=== PATIENT | male | born 1995 | race African-American/Black ===

== ENCOUNTER 2019-04-26 20:51 | Emergency (ER) | payer SELFPAY | END 2019-04-26 21:22 | disposition home or self-care (01) | LOC: MADERS 20:51 | DX: S91.201A Unspecified open wound of right great toe with damage to nail, initial encounter (principal); F31.9 Bipolar disorder, unspecified; F17.220 Nicotine dependence, chewing tobacco, uncomplicated; W20.8XXA Other cause of strike by thrown, projected or falling object, initial encounter | CPT/HCPCS: 99283 ==

== ENCOUNTER 2019-07-05 12:10 | Emergency (ER) | payer SELFPAY ==
[2019-07-05] MEDS ORDERED: Ketorolac Tromethamine 60 MG/2 ML VIAL ONE (12:43)
== END 2019-07-05 13:02 | disposition home or self-care (01) ==
LOC: MADERS 12:10
DX: S39.011A Strain of muscle, fascia and tendon of abdomen, initial encounter (principal); F31.9 Bipolar disorder, unspecified; F17.220 Nicotine dependence, chewing tobacco, uncomplicated; X50.9XXA Other and unspecified overexertion or strenuous movements or postures, initial encounter
CPT/HCPCS: 96372; 99283; J1885

== ENCOUNTER 2020-02-04 10:41 | Emergency (ER) | payer SELFPAY ==
[2020-02-04] MEDS ORDERED: Azithromycin 250 MG TAB ONE (11:01)
[2020-02-04] MEDS ORDERED: Dexamethasone 4 MG TAB ONE (11:30)
[2020-02-04] MEDS ORDERED: Benzonatate 100 MG CAP ONE (11:31)
== END 2020-02-04 11:35 | disposition home or self-care (01) ==
LOC: MADERS 10:41
DX: J18.9 Pneumonia, unspecified organism (principal); J02.9 Acute pharyngitis, unspecified; F31.9 Bipolar disorder, unspecified; Z87.891 Personal history of nicotine dependence
CPT/HCPCS: 99282; J8540

== ENCOUNTER 2020-05-02 07:39 | Emergency (ER) | payer SELFPAY ==
[2020-05-02] MEDS ORDERED: Metoclopramide HCl 10 MG/2 ML VIAL ONE (08:41)
[2020-05-02] MEDS ORDERED: Sodium Chloride 0.9% 1,000 ML ONE ×2 (08:41→10:06)
--- NOTE | 2020-05-02 09:00 | CT ---
Exam: Head CT without contrast HISTORY: Headache COMPARISON: 07/23/2010 FINDINGS: Hemorrhage: No intraparenchymal hemorrhage or extra-axial hematoma. Brain parenchyma: Cortical gibbons-white matter differentiation is preserved. No mass effect or midline shift. Basilar cisterns are patent. Ventricular system: Ventricles and sulci are patent and symmetric. Calvarium: Intact. Sinuses and mastoid air cells: Adequate aeration. IMPRESSION: No acute intracranial process.
[2020-05-02 09:01] LABS: #Neutrophils 2.5 thou/uL (1.40-6.50); %Basophils 1.6 % (0.0-1.0); %Eosinophils 4.3 % (0.0-10.0); %Lymphocytes 31.4 % (21.0-51.0); %Monocytes 9.2 % (0.0-10.0); %Neutrophils 53.6 % (42.0-75.0); Hemoglobin 16.9 g/dL (14.0-18.0); Mean Corpuscular Hemoglobin 28.7 pg (27.0-31.0); Mean Corpuscular Volume 86.8 fL (78.0-98.0); Mean Platelet Volume 7.5 fL (7.4-10.4); Platelet Count 245 thou/uL (130-400); RBC Distribution Width 11.2 % (11.5-14.5); Red Blood Cell (RBC) Count 5.91 mill/uL (4.70-6.10); White Blood Cell (WBC) Count 4.7 thou/uL (4.8-10.8)
[2020-05-02 09:02] LABS: #Basophils 0.1 thou/uL (0.0-0.2); #Eosinphils 0.2 thou/uL (0.0-0.7); #Lymphocytes 1.5 thou/uL (1.20-3.40); #Monocytes 0.4 thou/uL (0.11-0.59)
[2020-05-02 09:25] LABS: BUN (Urea Nitrogen) 12 mg/dL (8.9-20.6); Calc. Creatinine Clearance 0 mL/min (70-130); Calcium 9.1 mg/dL (7.8-10.44); Carbon Dioxide 26 mmol/L (22-29); Chloride 104 mmol/L (98-107); Estimated GFR-MDRD Greater than 90; Glucose 96 mg/dL (70-105); Potassium 3.8 mmol/L (3.5-5.1); Sodium 140 mmol/L (136-145)
[2020-05-02 09:26] LABS: Anion Gap 14 mmol/L (10-20)
[2020-05-02] MEDS ORDERED: Lidocaine 1% 20 ML MDV ONE (09:27)
[2020-05-02 12:00] LABS: CSF Source CSF; Clarity Clear (Clear); Tube # 4
[2020-05-02 12:02] LABS: CSF RBC Count - Manual 2 /cu.mm (None Seen); CSF WBC/NonHematics Count-Man 3 /cu.mm (0-5)
[2020-05-02 12:15] LABS: CSF RBC Count - Manual 33 /cu.mm (None Seen); CSF Source CSF; CSF WBC/NonHematics Count-Man 1 /cu.mm (0-5); Clarity Clear (Clear); Tube # 1
[2020-05-02 12:53] LABS: Color Of CSF Supernatant COLORLESS (Colorless); Tube # 2; Unspun CSF Color COLORLESS (Colorless)
[2020-05-02 13:16] LABS: CSF, Glucose 60 mg/dl (40-70); CSF, Protein 22 mg/dL (15-40)
== END 2020-05-02 12:30 | disposition home or self-care (01) ==
LOC: MADERS 07:39
DX: R51 Headache (principal); F31.9 Bipolar disorder, unspecified; Z87.891 Personal history of nicotine dependence
CPT/HCPCS: 62270; 70450; 80048; 82945; 84157; 85025; 87070; 87205; 89051; 96361; 96374; J2001; J2765; J7050